=== PATIENT | female | born 1975 | race Caucasian/White ===

== ENCOUNTER 2017-03-27 15:40 | Emergency (ER) | payer BC ==
[~2017-03-27] VITALS: Ht 167.6 cm; Wt 81.6 kg
[~2017-03-27 15:40] MED LIST: ADIPEX-P37.5 MG PO; AMOXICILLIN500 M2 PO; CLARITIN10 MG PO; CYCLOBENZAPRINE10 MG PO; FLEXERIL10 MG PO; FLONASE ALLERG9.9 ML NAS; HYDROCODONE BIT1 T11 PO; IBU800 M1 PO; MOTRIN800 MG PO; Motrin,Rufen800 MG PO; NORCO 5-325 TA1 EACH PO; PHENTERMINE H37.5 M1 PO; PHENTERMINE37.5 MG PO; PREDNISONE10 MG PO; PROPRANOLOL HCL60 MG PO; QVAR0.08 MG/AC INH; ROBITUSSIN AC 110 ML PO; ULTRAM50 MG PO; VIBRAMYCIN100 MG PO; XANAX XR1 MG PO; ZITHROMAX250 MG PO; ZOFRAN ODT4 MG SL; ZYRTEC10 MG PO
[2017-03-27 17:18] VITALS: BP 129/87
[2017-03-27] MEDS ORDERED: Fioricet 325 MG1 TAB PO (20:30)
== END 2017-03-27 20:56 | disposition home or self-care (01) ==
LOC: ED 15:40
DX: G43.909 Migraine, unspecified, not intractable, without status migrainosus (principal); F17.200 Nicotine dependence, unspecified, uncomplicated

== ENCOUNTER 2017-04-12 07:38 | Emergency (ER) | payer BC ==
[~2017-04-12] VITALS: Ht 167.6 cm; Wt 86.2 kg
[~2017-04-12 07:38] MED LIST changes: +Fioricet 325 MG1 TAB PO
[2017-04-12 07:42] VITALS: BP 147/88
[2017-04-12] MEDS ORDERED: ALBUTEROL2.5 MG/0.5 INH (07:42)
[2017-04-12 08:09] LABS: BASO # 0.1 10*3/uL (0.0-0.1); BASO % 0.9 % (0.0-1.0); EOS # 0.2 10*3/uL (0.0-0.4); EOS % 2.6 % (1.0-4.0); HEMOGLOBIN 12.8 g/dl (12.0-16.0); LYMPH # 1.6 10*3/uL (1.3-4.4); MEAN CELL VOLUME 87.4 fl (81.0-99.0); MEAN CORPUSCULAR HGB 28.7 pg (27.0-31.0); MEAN CORPUSCULAR HGB CONC 32.8 g/dl (33.0-37.0); MEAN PLATELET VOLUME 10.9 fl (9.6-12.3); MONO # 0.4 10*3/uL (0.1-1.0); MONO % 6.7 % (3.0-9.0); NEUT # 3.5 10*3/uL (2.3-7.9); NEUT % 61.6 % (47.0-73.0); PLATELET COUNT AUTOMATED 283 10*3/uL (130-400); RED BLOOD COUNT 4.46 10*6/uL (4.10-5.10); RED CELL DISTRI WIDTH 12.7 % (0-14.5); WHITE BLOOD COUNT 5.7 10*3/uL (4.8-10.8)
[2017-04-12 08:23] LABS: PROTHROMBIN TIME 10.3 SECONDS (9.0-12.4)
[2017-04-12 08:25] LABS: ALBUMIN 3.3 gm/dl (3.1-4.5); ALKALINE PHOSPHATASE 47 U/L (45-117); BILIRUBIN, TOTAL 0.4 mg/dl (0.2-1.0); BUN 8 mg/dl (7-24); CARBON DIOXIDE 29 mmol/L (21-32); CHLORIDE 105 mmol/L (98-107); EST GLOM FILT AFRICAN AMERICAN > 60 ml/min; GLUCOSE 85 mg/dL (65-99); MAGNESIUM 2.3 mg/dL (1.5-2.1); POTASSIUM 3.7 mmol/L (3.5-5.1); SGOT/AST 15 IU/L (3-35); SGPT/ALT 19 U/L (12-78); SODIUM 140 mmol/L (136-145)
[2017-04-12 08:26] LABS: TROPONIN I < 0.015 ng/ml (<0.045)
== END 2017-04-12 08:56 | disposition home or self-care (01) ==
LOC: ED 07:38
PROVIDERS: Student in an Organized Health Care Education/Training Program
DX: J45.901 Unspecified asthma with (acute) exacerbation (principal)

== ENCOUNTER 2017-06-04 11:56 | Emergency (ER) | payer BC ==
[~2017-06-04] VITALS: Wt 77.1 kg
[~2017-06-04 11:56] MED LIST changes: +ALBUTEROL2.5 MG/0.5 INH
[2017-06-04 12:02] VITALS: BP 144/77
[2017-06-04] MEDS ORDERED: KETOROLAC10 MG PO (13:17)
== END 2017-06-04 13:40 | disposition home or self-care (01) ==
LOC: ED 11:56
DX: S43.401A Unspecified sprain of right shoulder joint, initial encounter (principal); X50.9XXA Other and unspecified overexertion or strenuous movements or postures, initial encounter; Y93.89 Activity, other specified; Y92.9 Unspecified place or not applicable; Y99.9 Unspecified external cause status

== ENCOUNTER 2017-07-16 14:58 | Emergency (ER) | payer BC ==
[~2017-07-16] VITALS: Ht 167.6 cm; Wt 86.2 kg
[~2017-07-16 14:58] MED LIST changes: +KETOROLAC10 MG PO
[2017-07-16 15:08] VITALS: BP 110/70
[2017-07-16 15:43] LABS: BASO # 0.1 10*3/uL (0.0-0.1); BASO % 0.8 % (0.0-1.0); EOS # 0.2 10*3/uL (0.0-0.4); EOS % 2.4 % (1.0-4.0); HEMATOCRIT 40.7 % (37.0-47.0); HEMOGLOBIN 13.1 g/dl (12.0-16.0); LYMPH # 1.7 10*3/uL (1.3-4.4); LYMPH % 27.8 % (27.0-41.0); MEAN CELL VOLUME 90.2 fl (81.0-99.0); MEAN CORPUSCULAR HGB CONC 32.2 g/dl (33.0-37.0); MEAN PLATELET VOLUME 10.8 fl (9.6-12.3); MONO # 0.5 10*3/uL (0.1-1.0); MONO % 8.1 % (3.0-9.0); NEUT # 3.7 10*3/uL (2.3-7.9); NEUT % 60.7 % (47.0-73.0); PLATELET COUNT AUTOMATED 296 10*3/uL (130-400); RED BLOOD COUNT 4.51 10*6/uL (4.10-5.10); RED CELL DISTRI WIDTH 12.9 % (0-14.5); WHITE BLOOD COUNT 6.2 10*3/uL (4.8-10.8)
[2017-07-16 15:59] LABS: ALBUMIN 3.4 gm/dl (3.1-4.5); ALKALINE PHOSPHATASE 52 U/L (45-117); BUN 12 mg/dl (7-24); CHLORIDE 105 mmol/L (98-107); CREATININE 0.92 mg/dL (0.55-1.02); LIPASE 137 U/L (73-393); POTASSIUM 3.7 mmol/L (3.5-5.1); SGOT/AST 15 IU/L (3-35); SGPT/ALT 19 U/L (12-78); SODIUM 140 mmol/L (136-145)
[2017-07-16] MEDS ORDERED: ATIVAN1 MG PO (16:34)
== END 2017-07-16 18:07 | disposition home or self-care (01) ==
LOC: ED 14:58
PROVIDERS: Physician Assistant
DX: F41.9 Anxiety disorder, unspecified (principal); R10.13 Epigastric pain; Z98.51 Tubal ligation status

== ENCOUNTER 2017-08-18 13:05 | Emergency (ER) | payer BC ==
[~2017-08-18] VITALS: Ht 167.6 cm; Wt 81.6 kg
[~2017-08-18 13:05] MED LIST changes: +ATIVAN1 MG PO
[2017-08-18 13:23] VITALS: BP 118/65
[2017-08-18] MEDS ORDERED: CLINDAMYCIN150 MG PO (13:26)
[2017-08-18] MEDS ORDERED: Peridex 473 ML473 ML PO (13:26)
[2017-08-18] MEDS ORDERED: NAPROSYN500 MG PO (13:26)
== END 2017-08-18 13:35 | disposition home or self-care (01) ==
LOC: ED 13:05
DX: K04.7 Periapical abscess without sinus (principal); J45.909 Unspecified asthma, uncomplicated

== ENCOUNTER 2017-09-15 12:09 | Emergency (ER) | payer BC ==
[~2017-09-15] VITALS: Ht 167.6 cm; Wt 81.6 kg
[~2017-09-15 12:09] MED LIST changes: +CLINDAMYCIN150 MG PO; +NAPROSYN500 MG PO; +Peridex 473 ML473 ML PO
[2017-09-15 12:16] VITALS: BP 125/68
[2017-09-15] MEDS ORDERED: ROBITUSSIN DM 105 ML PO (13:36)
[2017-09-15] MEDS ORDERED: ZITHROMAX250 MG PO (13:36)
[2017-09-15] MEDS ORDERED: CLARITIN10 MG PO (13:36)
[2017-09-15] MEDS ORDERED: PREDNISONE10 MG PO (13:36)
== END 2017-09-15 14:32 | disposition home or self-care (01) ==
LOC: ED 12:09
DX: J06.9 Acute upper respiratory infection, unspecified (principal); R03.0 Elevated blood-pressure reading, without diagnosis of hypertension; F41.9 Anxiety disorder, unspecified; J45.901 Unspecified asthma with (acute) exacerbation; Z79.899 Other long term (current) drug therapy

== ENCOUNTER 2017-11-23 17:36 | Emergency (ER) | payer BC ==
[~2017-11-23] VITALS: Wt 81.6 kg
[~2017-11-23 17:36] MED LIST changes: +ROBITUSSIN DM 105 ML PO
[2017-11-23] MEDS ORDERED: MEDROL DOSEPAK4 MG PO (19:23)
[2017-11-23] MEDS ORDERED: ZITHROMAX250 MG PO (19:23)
[2017-11-23] MEDS ORDERED: BROMFED DM COU118 M2 PO (19:23)
[2017-11-23 19:42] VITALS: BP 128/68
== END 2017-11-23 19:27 | disposition home or self-care (01) ==
LOC: ED 17:36
DX: J01.10 Acute frontal sinusitis, unspecified (principal); J40 Bronchitis, not specified as acute or chronic; J45.901 Unspecified asthma with (acute) exacerbation; F41.9 Anxiety disorder, unspecified; Z79.899 Other long term (current) drug therapy

== ENCOUNTER 2017-12-07 19:22 | Emergency (ER) | payer BC ==
[~2017-12-07] VITALS: Ht 167.6 cm; Wt 81.6 kg
--- NOTE | ~2017-12-07 | EKG ---
[place], [place] ELECTROCARDIOGRAM REPORT NAME: BETO MAYEN UNIT #: [id number] ROOM: DOCTOR: KAYLA FINNEY MD BIRTHDATE: [birth year] DOS: 12/07/2017 TIME: 2042 hours. FINDINGS: 1. Normal sinus rhythm at 70 beats per minute. 2. Minimal criteria for LVH. 3. No significant change from the ECG done at 1926 hours of the same day. KAYLA FINNEY MD CM:EKGRPT:ELECTROCARDIOGRAM REPORT [id number] 1821 KAYLA FINNEY MD
--- NOTE | ~2017-12-07 | EKG ---
[place], [place] ELECTROCARDIOGRAM REPORT NAME: BETO MAYEN UNIT #: [id number] ROOM: DOCTOR: KAYLA FINNEY MD BIRTHDATE: [birth year] DOS: 12/07/2017 TIME: 1936 hours. FINDINGS: 1. Normal sinus rhythm at 85 beats per minute. 2. Minimal criteria for left ventricular hypertrophy. 3. No previous tracing is available for comparison. KYALA FINNEY MD CM:EKGRPT:ELECTROCARDIOGRAM REPORT [id number] 1820 KAYLA FINNEY MD
[~2017-12-07 19:22] MED LIST changes: +BROMFED DM COU118 M2 PO; +MEDROL DOSEPAK4 MG PO
[2017-12-07 19:41] LABS: BASO % 0.5 % (0.0-1.0); EOS # 0.2 10*3/uL (0.0-0.4); EOS % 1.9 % (1.0-4.0); HEMATOCRIT 40.9 % (37.0-47.0); HEMOGLOBIN 13.5 g/dl (12.0-16.0); LYMPH # 1.7 10*3/uL (1.3-4.4); LYMPH % 21.7 % (27.0-41.0); MEAN CELL VOLUME 88.3 fl (81.0-99.0); MEAN CORPUSCULAR HGB 29.2 pg (27.0-31.0); MEAN PLATELET VOLUME 10.8 fl (9.6-12.3); MONO # 0.8 10*3/uL (0.1-1.0); MONO % 10.5 % (3.0-9.0); NEUT # 5.2 10*3/uL (2.3-7.9); NEUT % 65.3 % (47.0-73.0); PLATELET COUNT AUTOMATED 336 10*3/uL (130-400); RED BLOOD COUNT 4.63 10*6/uL (4.10-5.10); WHITE BLOOD COUNT 7.9 10*3/uL (4.8-10.8)
[2017-12-07 19:50] LABS: ACT PARTIAL THROMBO TIME 26.1 SECONDS (20.8-31.5)
[2017-12-07 19:58] LABS: ALBUMIN 3.6 gm/dl (3.1-4.5); ALKALINE PHOSPHATASE 58 U/L (45-117); BUN 9 mg/dl (7-24); CHLORIDE 105 mmol/L (98-107); CREATININE 0.97 mg/dL (0.55-1.02); POTASSIUM 3.3 mmol/L (3.5-5.1); SGOT/AST 23 IU/L (3-35); SGPT/ALT 37 U/L (12-78); SODIUM 141 mmol/L (136-145); TOTAL PROTEIN 7.7 gm/dL (6.4-8.2)
[2017-12-07 19:59] LABS: TROPONIN I < 0.015 ng/ml (<0.045)
[2017-12-07] MEDS ORDERED: KETOROLAC10 MG PO (20:38)
[2017-12-07 22:00] VITALS: BP 127/73
== END 2017-12-07 22:26 | disposition home or self-care (01) ==
LOC: ED 19:22
PROVIDERS: Emergency Medicine Emergency Medical Services
DX: M94.0 Chondrocostal junction syndrome [Tietze] (principal); Z98.51 Tubal ligation status; Z79.899 Other long term (current) drug therapy

== ENCOUNTER 2017-12-22 18:35 | Emergency (ER) | payer BC ==
[~2017-12-22] VITALS: Ht 167.6 cm; Wt 81.6 kg
[2017-12-22 18:52] VITALS: BP 133/76
[2017-12-22] MEDS ORDERED: Motrin,Rufen800 MG PO (20:38)
== END 2017-12-22 20:40 | disposition home or self-care (01) ==
LOC: ED 18:35
DX: S40.022A Contusion of left upper arm, initial encounter (principal); S60.222A Contusion of left hand, initial encounter; S40.021A Contusion of right upper arm, initial encounter; S60.221A Contusion of right hand, initial encounter; J45.901 Unspecified asthma with (acute) exacerbation; F41.9 Anxiety disorder, unspecified; Y04.0XXA Assault by unarmed brawl or fight, initial encounter; Y93.89 Activity, other specified; Y92.89 Other specified places as the place of occurrence of the external cause; Y99.8 Other external cause status

== ENCOUNTER 2017-12-24 08:43 | Emergency (ER) | payer BC ==
[~2017-12-24] VITALS: Ht 167.6 cm; Wt 72.6 kg
[2017-12-24 09:02] LABS: BASO # 0.1 10*3/uL (0.0-0.1); BASO % 0.8 % (0.0-1.0); EOS # 0.2 10*3/uL (0.0-0.4); EOS % 2.6 % (1.0-4.0); HEMATOCRIT 37.1 % (37.0-47.0); HEMOGLOBIN 12.2 g/dl (12.0-16.0); LYMPH # 1.5 10*3/uL (1.3-4.4); LYMPH % 23.8 % (27.0-41.0); MEAN CELL VOLUME 88.5 fl (81.0-99.0); MEAN CORPUSCULAR HGB 29.1 pg (27.0-31.0); MEAN CORPUSCULAR HGB CONC 32.9 g/dl (33.0-37.0); MEAN PLATELET VOLUME 10.8 fl (9.6-12.3); MONO # 0.6 10*3/uL (0.1-1.0); NEUT % 63.6 % (47.0-73.0); PLATELET COUNT AUTOMATED 342 10*3/uL (130-400); RED BLOOD COUNT 4.19 10*6/uL (4.10-5.10); RED CELL DISTRI WIDTH 12.9 % (0-14.5); WHITE BLOOD COUNT 6.2 10*3/uL (4.8-10.8)
[2017-12-24 09:19] LABS: ALBUMIN 3.5 gm/dl (3.1-4.5); ALKALINE PHOSPHATASE 53 U/L (45-117); BUN 9 mg/dl (7-24); CHLORIDE 104 mmol/L (98-107); POTASSIUM 3.5 mmol/L (3.5-5.1); SGOT/AST 14 IU/L (3-35); SGPT/ALT 23 U/L (12-78); SODIUM 141 mmol/L (136-145); TOTAL PROTEIN 7.2 gm/dL (6.4-8.2)
[2017-12-24 09:26] LABS: ETHYL ALCOHOL < 3.0 mg/dl (<3)
[2017-12-24 09:38] LABS: BILIRUBIN NEGATIVE (NEGATIVE); BLOOD NEGATIVE (NEGATIVE); CLARITY SL CLOUDY (CLEAR); COLOR YELLOW (YELLOW); GLUCOSE NEGATIVE (NEGATIVE); KETONE NEGATIVE (NEGATIVE); LEUKO ESTERASE NEGATIVE (NEGATIVE); NITRITE NEGATIVE (NEGATIVE); PH 6.5 (5.0-9.0); UROBILINOGEN 0.2 E.U./dl (0.2-1.0)
[2017-12-24 09:47] LABS: URINE AMPHETAMINES < 1000 (1000ng/ml); URINE BARBITURATES < 200 (200ng/ml); URINE BENZODIAZEPINES < 200 (200ng/ml); URINE CANNABINOIDS (THC) < 50 (50ng/ml); URINE COCAINE > 300 (300ng/ml); URINE METHADONE < 300 (300ng/ml); URINE OPIATES < 300 (300ng/ml); URINE PHENCYCLIDINE < 25 (25ng/ml)
[2017-12-24 09:58] LABS: BACTERIA 1+
[2017-12-24 23:00] VITALS: BP 122/63
== END 2017-12-25 00:51 | disposition home health service (06) ==
LOC: ED 08:43
PROVIDERS: Emergency Medicine
DX: R45.851 Suicidal ideations (principal); F14.10 Cocaine abuse, uncomplicated; J45.901 Unspecified asthma with (acute) exacerbation; F41.9 Anxiety disorder, unspecified; F32.9 Major depressive disorder, single episode, unspecified

== ENCOUNTER 2017-12-30 23:03 | Emergency (ER) | payer BC ==
[~2017-12-30] VITALS: Ht 167.6 cm; Wt 81.6 kg
[2017-12-30 23:09] VITALS: BP 138/90
[2017-12-31] MEDS ORDERED: NAPROSYN500 MG PO (00:25)
== END 2017-12-31 00:46 | disposition home or self-care (01) ==
LOC: ED 23:03
DX: S93.401A Sprain of unspecified ligament of right ankle, initial encounter (principal); F41.9 Anxiety disorder, unspecified; J45.901 Unspecified asthma with (acute) exacerbation; W01.0XXA Fall on same level from slipping, tripping and stumbling without subsequent striking against object, initial encounter; Y93.89 Activity, other specified; Y92.89 Other specified places as the place of occurrence of the external cause; Y99.8 Other external cause status

== ENCOUNTER 2018-04-04 11:57 | Emergency (ER) | payer OTHER ==
[~2018-04-04] VITALS: Ht 167.6 cm; Wt 81.6 kg
[2018-04-04 12:28] LABS: BASO % 0.7 % (0.0-1.0); EOS # 0.1 10*3/uL (0.0-0.4); EOS % 3.2 % (1.0-4.0); HEMOGLOBIN 12.9 g/dl (12.0-16.0); LYMPH # 1.3 10*3/uL (1.3-4.4); LYMPH % 29.9 % (27.0-41.0); MEAN CELL VOLUME 89.7 fl (81.0-99.0); MEAN CORPUSCULAR HGB 28.9 pg (27.0-31.0); MEAN CORPUSCULAR HGB CONC 32.3 g/dl (33.0-37.0); MONO # 0.3 10*3/uL (0.1-1.0); MONO % 7.4 % (3.0-9.0); NEUT # 2.5 10*3/uL (2.3-7.9); NEUT % 58.6 % (47.0-73.0); PLATELET COUNT AUTOMATED 291 10*3/uL (130-400); RED BLOOD COUNT 4.46 10*6/uL (4.10-5.10); RED CELL DISTRI WIDTH 12.5 % (0-14.5); WHITE BLOOD COUNT 4.3 10*3/uL (4.8-10.8)
[2018-04-04 12:36] LABS: ACT PARTIAL THROMBO TIME 25.6 SECONDS (20.8-31.5); INTERNATIONAL NORM RATIO 0.9 (2.0-3.5)
[2018-04-04 12:49] LABS: ALBUMIN 3.5 gm/dl (3.1-4.5); ALKALINE PHOSPHATASE 58 U/L (45-117); BUN 9 mg/dl (7-24); CHLORIDE 105 mmol/L (98-107); CREATININE 0.85 mg/dL (0.55-1.02); LIPASE 113 U/L (73-393); SGOT/AST 17 IU/L (3-35); SGPT/ALT 23 U/L (12-78); SODIUM 138 mmol/L (136-145); TOTAL PROTEIN 7.6 gm/dL (6.4-8.2)
[2018-04-04 12:51] LABS: BETA-HCG, QUANT < 1.0 mIU/mL (1-3); TROPONIN I < 0.015 ng/ml (<0.045)
[2018-04-04 17:11] VITALS: BP 135/92
[2018-04-04] MEDS ORDERED: PEPCID20 MG PO (18:07)
== END 2018-04-04 18:12 | disposition home or self-care (01) ==
LOC: ED 11:57
PROVIDERS: Emergency Medicine
DX: K29.00 Acute gastritis without bleeding (principal); R30.0 Dysuria; J44.9 Chronic obstructive pulmonary disease, unspecified; E78.5 Hyperlipidemia, unspecified

== ENCOUNTER 2018-04-26 14:56 | Emergency (ER) | payer OTHER ==
[~2018-04-26] VITALS: Ht 167.6 cm; Wt 81.6 kg
[~2018-04-26 14:56] MED LIST changes: +PEPCID20 MG PO
[2018-04-26 14:57] VITALS: BP 128/70
[2018-04-26] MEDS ORDERED: PREDNISONE50 MG PO (15:20)
== END 2018-04-26 15:30 | disposition home or self-care (01) ==
LOC: ED 14:56
DX: J45.901 Unspecified asthma with (acute) exacerbation (principal)

== ENCOUNTER 2021-10-19 10:13 | Emergency (ER) | payer OTHER ==
[~2021-10-19] VITALS: Ht 167.6 cm; Wt 81.6 kg
[~2021-10-19 10:13] MED LIST changes: +PREDNISONE50 MG PO
[2021-10-19 10:31] VITALS: BP 139/81
[2021-10-19 11:03] LABS: BASO % 0.7 % (0.0-1.0); EOS # 0.2 10*3/uL (0.0-0.4); EOS % 2.8 % (1.0-4.0); HEMATOCRIT 40.6 % (37.0-47.0); LYMPH # 1.3 10*3/uL (1.3-4.4); LYMPH % 23.7 % (27.0-41.0); MEAN CELL VOLUME 86.4 fl (81.0-99.0); MEAN CORPUSCULAR HGB 28.1 pg (27.0-31.0); MEAN CORPUSCULAR HGB CONC 32.5 g/dl (33.0-37.0); MEAN PLATELET VOLUME 10.8 fl (9.6-12.3); MONO # 0.5 10*3/uL (0.1-1.0); MONO % 8.6 % (3.0-9.0); NEUT # 3.4 10*3/uL (2.3-7.9); NEUT % 63.8 % (47.0-73.0); PLATELET COUNT AUTOMATED 337 10*3/uL (130-400); RED CELL DISTRI WIDTH 12.9 % (0-14.5); WHITE BLOOD COUNT 5.4 10*3/uL (4.8-10.8)
[2021-10-19 11:17] LABS: ALBUMIN 3.1 gm/dl (3.1-4.5); ALKALINE PHOSPHATASE 68 U/L (45-117); BUN 14 mg/dl (7-24); CHLORIDE 107 mmol/L (98-107); CREATININE 0.75 mg/dL (0.55-1.02); POTASSIUM 3.8 mmol/L (3.5-5.1); SGOT/AST 21 IU/L (3-35); SGPT/ALT 36 U/L (12-78); SODIUM 140 mmol/L (136-145); TOTAL PROTEIN 7.4 gm/dL (6.4-8.2)
[2021-10-19] MEDS ORDERED: VIBRAMYCIN HYC100 MG PO (12:47)
== END 2021-10-19 13:05 | disposition home or self-care (01) ==
LOC: ED 10:13
PROVIDERS: Student in an Organized Health Care Education/Training Program
DX: L03.116 Cellulitis of left lower limb (principal); L02.511 Cutaneous abscess of right hand; L02.612 Cutaneous abscess of left foot; L03.113 Cellulitis of right upper limb

== ENCOUNTER 2022-02-12 15:11 | Emergency (ER) | payer OTHER ==
[~2022-02-12] VITALS: Ht 167.6 cm; Wt 74.8 kg
[~2022-02-12 15:11] MED LIST changes: +VIBRAMYCIN HYC100 MG PO
[2022-02-12 15:27] VITALS: BP 156/86
== END 2022-02-12 16:57 | disposition home or self-care (01) ==
LOC: ED 15:11
DX: Z00.00 Encounter for general adult medical examination without abnormal findings (principal)

== ENCOUNTER 2022-02-21 13:44 | Emergency (ER) | payer OTHER ==
[~2022-02-21] VITALS: Ht 167.6 cm; Wt 77.1 kg
[2022-02-21 14:01] VITALS: BP 143/64
[2022-02-21 14:47] LABS: BILIRUBIN Negative (Negative); BLOOD Negative (Negative); CLARITY Clear (Clear); COLOR Yellow (Yellow); GLUCOSE Negative (Negative); KETONE Negative (Negative); LEUKO ESTERASE Trace (Negative); NITRITE Negative (Negative); UROBILINOGEN 0.2 E.U./dl (0.0-1.0)
[2022-02-21] MEDS ORDERED: CEPHALEXIN500 M1 PO (17:29)
== END 2022-02-21 17:41 | disposition home or self-care (01) ==
LOC: ED 13:44
PROVIDERS: Physician Assistant
DX: S80.01XA Contusion of right knee, initial encounter (principal); S90.821A Blister (nonthermal), right foot, initial encounter; L08.9 Local infection of the skin and subcutaneous tissue, unspecified; Z98.51 Tubal ligation status; V29.9XXA Motorcycle rider (driver) (passenger) injured in unspecified traffic accident, initial encounter; Y93.89 Activity, other specified; Y92.89 Other specified places as the place of occurrence of the external cause; Y99.8 Other external cause status

== ENCOUNTER 2022-08-16 01:36 | Emergency (ER) | payer OTHER ==
[~2022-08-16 01:36] MED LIST changes: +CEPHALEXIN500 M1 PO
[2022-08-16 01:41] VITALS: BP 180/96
== END 2022-08-16 02:36 | disposition home or self-care (01) ==
LOC: ED 01:36
DX: Z00.00 Encounter for general adult medical examination without abnormal findings (principal)

== ENCOUNTER 2022-10-11 06:24 | Emergency (ER) | payer OTHER ==
[~2022-10-11] VITALS: Ht 165.1 cm; Wt 65.8 kg
[2022-10-11 06:26] VITALS: BP 139/102
== END 2022-10-11 09:05 | disposition home or self-care (01) ==
LOC: ED 06:24
DX: R42 Dizziness and giddiness (principal); Z98.51 Tubal ligation status; Z87.891 Personal history of nicotine dependence; F19.90 Other psychoactive substance use, unspecified, uncomplicated